=== PATIENT | female | born 1955 | race African-American/Black ===

== ENCOUNTER 2018-03-01 07:37 | Emergency (ER) | payer OTHER ==
[~2018-03-01] VITALS: Ht 175.3 cm; Wt 106.0 kg
[2018-03-01] MEDS ORDERED: KETOROLAC 30MG/ML VIAL IV STA (09:03)
[2018-03-01] MEDS ORDERED: SODIUM CHLORIDE 0.9% 1,000 ML IV ONE (09:03)
[2018-03-01] MEDS ORDERED: FENTANYL CITRATE/PF 50MCG/ML 2ML VIAL IV ONE ×2 (09:15→11:30)
[2018-03-01 09:32] LABS: BASOPHILS % 0.9 % (0.0-2.0); EOSINOPHILS % 1.3 % (0.0-5.0); HEMOGLOBIN. 16.8 g/dL (12.0-16.0); LYMPHOCYTES % 29.1 % (20.0-50.0); MEAN CORPUSCULAR HEMOGLOBIN 33.1 pg (28.0-32.0); MEAN CORPUSCULAR VOLUME 94.5 fL (81.0-99.0); MONOCYTES % 10.2 % (2.0-8.0); NEUTROPHILS % 58.5 % (40.0-76.0); PLATELET 124 x1000/uL (130-400); RED BLOOD CELL COUNT 5.07 mill/uL (4.2-5.4)
[2018-03-01 09:38] LABS: CHLORIDE 109 mEq/L (98-107)
[2018-03-01 09:39] LABS: PROTHROMBIN TIME 10.3 sec (9.4-11.6)
[2018-03-01 09:47] LABS: CLARITY URINE CLOUDY (CLEAR); COLOR URINE YELLOW (YELLOW); KETONES URINE NEGATIVE (NEGATIVE); LEUKOCYTE ESTERASE URINE NEGATIVE (NEGATIVE); NITRITE URINE NEGATIVE (NEGATIVE); OCCULT BLOOD URINE NEGATIVE (NEGATIVE); PROTEIN URINE NEGATIVE (NEGATIVE); SPECIFIC GRAVITY URINE 1.014 (1.005-1.030); UROBILINOGEN URINE 0.2 E.U./dL (0.2-1.0)
[2018-03-01 17:48] VITALS: BP 172/90
== END 2018-03-01 18:02 | disposition home or self-care (01) ==
LOC: ER 07:37 → EDBEDREQ 12:14 → ER 18:02 → CANRESERV 19:43 → ENRESERV 19:43 → CANBEDREQ 03-02 06:13
DX: N20.0 Calculus of kidney (principal); I10 Essential (primary) hypertension; R00.1 Bradycardia, unspecified; M54.42 Lumbago with sciatica, left side; W18.2XXA Fall in (into) shower or empty bathtub, initial encounter; Y93.E1 Activity, personal bathing and showering; Y92.091 Bathroom in other non-institutional residence as the place of occurrence of the external cause; E66.9 Obesity, unspecified; Z68.34 Body mass index [BMI] 34.0-34.9, adult
CPT/HCPCS: 36415; 74176; 80053; 81003; 83690; 85025; 85610; 96374; 96375; 99285; J1885; J3010; J7030

== ENCOUNTER 2018-03-08 13:27 | Emergency (ER) | payer OTHER ==
[~2018-03-08] VITALS: Ht 167.6 cm; Wt 109.0 kg
[2018-03-08] MEDS ORDERED: OXYCODONE HCL/ACETAMINOPHEN 5/325MG TABLET PO ONE (14:30)
[2018-03-08 16:48] VITALS: BP 130/79
== END 2018-03-08 16:50 | disposition home or self-care (01) ==
LOC: ER 13:33
DX: R07.89 Other chest pain (principal); M54.2 Cervicalgia; M54.5 Low back pain; R42 Dizziness and giddiness; R11.0 Nausea; R03.0 Elevated blood-pressure reading, without diagnosis of hypertension; V49.50XA Passenger injured in collision with unspecified motor vehicles in traffic accident, initial encounter; Y93.89 Activity, other specified; Y92.410 Unspecified street and highway as the place of occurrence of the external cause
CPT/HCPCS: 70450; 71045; 72100; 72125; 99284; Z7610

== ENCOUNTER 2019-07-04 10:52 | Emergency (ER) | payer OTHER ==
[~2019-07-04] VITALS: Ht 175.3 cm; Wt 110.0 kg
[2019-07-04] MEDS ORDERED: NITROGLYCERIN OINT 1GM/INCH UDPKT TD ONE (11:30)
[2019-07-04] MEDS ORDERED: ASPIRIN 81MG TABLET PO ONE (11:30)
[2019-07-04 11:43] LABS: BASOPHILS % 0.5 % (0.0-2.0); EOSINOPHILS % 0.9 % (0.0-5.0); HEMATOCRIT. 41.5 % (36.0-48.0); HEMOGLOBIN. 14.4 g/dL (12.0-16.0); LYMPHOCYTES % 20.7 % (20.0-50.0); MEAN CORPUSCULAR HEMOGLOBIN 30.6 pg (28.0-32.0); MEAN CORPUSCULAR VOLUME 87.9 fL (81.0-99.0); MEAN PLATELET VOLUME 10.3 fl (7.4-10.4); MONOCYTES % 6.6 % (2.0-8.0); NEUTROPHILS % 71.3 % (40.0-76.0); PLATELET 152 x1000/uL (130-400); RED BLOOD CELL COUNT 4.72 mill/uL (4.2-5.4); RED CELL DISTRIBUTION WIDTH 14.5 % (11.6-14.6)
[2019-07-04 11:50] LABS: INR 0.9; PROTHROMBIN TIME 9.8 sec (9.6-11.0)
[2019-07-04 11:52] LABS: CHLORIDE 112 mEq/L (98-107)
[2019-07-04 20:00] VITALS: BP 105/65
== END 2019-07-04 20:10 | disposition short-term general hospital (02) ==
LOC: ER 10:52 → CANBEDREQ 14:17 → ER 20:10
DX: R07.89 Other chest pain (principal); E11.9 Type 2 diabetes mellitus without complications; I10 Essential (primary) hypertension; Z88.0 Allergy status to penicillin
CPT/HCPCS: 36415; 71045; 80053; 83880; 84484; 85025; 85610; 93005; 99285; Z7610

== ENCOUNTER 2020-01-23 15:50 | Inpatient (IN) | payer OTHER ==
[~2020-01-23] VITALS: Ht 175.3 cm; Wt 111.1 kg
[2020-01-23 17:21] LABS: BASOPHILS % 0.5 % (0.0-2.0); EOSINOPHILS % 1.7 % (0.0-5.0); HEMOGLOBIN. 12.6 g/dL (12.0-16.0); LYMPHOCYTES % 25.6 % (20.0-50.0); MEAN CORPUSCULAR HEMOGLOBIN 29.7 pg (28.0-32.0); MEAN CORPUSCULAR VOLUME 87.2 fL (81.0-99.0); MEAN PLATELET VOLUME 10.2 fl (7.4-10.4); MONOCYTES % 6.1 % (2.0-8.0); NEUTROPHILS % 66.1 % (40.0-76.0); PLATELET 157 x1000/uL (130-400); RED BLOOD CELL COUNT 4.24 mill/uL (4.2-5.4); RED CELL DISTRIBUTION WIDTH 15.8 % (11.6-14.6)
[2020-01-23 17:37] LABS: CHLORIDE 112 mEq/L (98-107)
[2020-01-23] MEDS ORDERED: ASPIRIN 81MG TABLET PO ONE (17:45)
[2020-01-23] MEDS ORDERED: FUROSEMIDE 20MG/2ML VIAL IVP ONE (17:45)
[2020-01-24] VITALS (12 sets, daily range): BP systolic 115–140; BP diastolic 56–81
[2020-01-24] MEDS ORDERED: CLONIDINE 0.1MG TABLET PO PRN (01:15)
[2020-01-24] MEDS ORDERED: DEXTROSE 50% WATER 50ML SYRINGE IV PRN (01:15)
[2020-01-24] MEDS ORDERED: TEMAZEPAM 15MG CAPSULE PO PRN (01:15)
[2020-01-24 02:30] LABS: LDL CHOLESTEROL 50 mg/dL (5-100)
[2020-01-24 02:31] LABS: HDL CHOLESTEROL 33 mg/dL (40-59)
[2020-01-24 02:32] LABS: CREATINE KINASE 99 IU/L (26-192)
[2020-01-24 02:33] LABS: CREATINE KINASE MB FRACTION < 1.0 ng/mL (0.5-3.6)
[2020-01-24] MEDS ORDERED: IBUP-2030 PO (02:57)
[2020-01-24] MEDS ORDERED: ASPI-1158 PO (02:57)
[2020-01-24] MEDS ORDERED: GLIP5TAB12 PO (02:57)
[2020-01-24] MEDS ORDERED: GABA300C PO (02:57)
[2020-01-24] MEDS ORDERED: ISOS60TA4 PO (02:57)
[2020-01-24] MEDS ORDERED: LISI-186 PO (02:57)
[2020-01-24] MEDS ORDERED: BUPR150T3 PO (02:57)
[2020-01-24] MEDS ORDERED: CLOP75TA4 PO (02:57)
[2020-01-24] MEDS ORDERED: ERGO500013 (02:57)
[2020-01-24] MEDS ORDERED: AMLO10TA80 PO (02:57)
[2020-01-24] MEDS ORDERED: ATOR80TA PO (02:57)
[2020-01-24] MEDS ORDERED: METF-416 PO (02:57)
[2020-01-24] MEDS: HYDROCODONE/ACETAMINOPHEN 5/325MG TABLET PO PRN ×2 (04:36→09:11)
[2020-01-24] MEDS: PANTOPRAZOLE 40MG DR TABLET PO SCH (06:28)
[2020-01-24] MEDS: BLOOD SUGAR DIAGNOSTIC STRIP TEST SCH ×4 (06:53→21:13)
[2020-01-24] MEDS: INSULIN LISPRO 100 UNITS/ML SUBCUT SCH ×4 (07:20→21:00)
[2020-01-24] MEDS: ASPIRIN 81MG EC TABLET PO SCH (08:38)
[2020-01-24] MEDS: ENOXAPARIN 30MG/0.3ML SYR SUBCUT SCH ×2 (09:10→21:13)
[2020-01-24 09:16] LABS: CHLORIDE 112 mEq/L (98-107)
[2020-01-24 09:25] LABS: CREATINE KINASE 104 IU/L (26-192)
[2020-01-24 09:27] LABS: CREATINE KINASE MB FRACTION < 1.0 ng/mL (0.5-3.6)
[2020-01-24] MEDS ORDERED: REGADENOSON 0.4 MG/5 ML IV SCH (13:30)
[2020-01-24] MEDS ORDERED: MORPHINE SULFATE 2 MG/ML CPJ (NOT FOR IM USE) IV PRN (15:30)
[2020-01-24] MEDS ORDERED: DIPHENHYDRAMINE 50MG/ML VIAL IV PRN (15:30)
[2020-01-24] MEDS ORDERED: ONDANSETRON HCL 4MG/2ML INJ IV PRN (15:30)
[2020-01-24] MEDS ORDERED: ACETAMINOPHEN 325MG TABLET PO PRN (15:30)
[2020-01-24] MEDS ORDERED: HYDRALAZINE 20MG/ML VIAL IV PRN (15:30)
[2020-01-24] MEDS ORDERED: LORAZEPAM 2MG/ML CPJ IV PRN (15:30)
[2020-01-24] MEDS ORDERED: ACETAMINOPHEN 650MG SUPP PR PRN (15:30)
[2020-01-24 15:45] LABS: BG BASE EXCESS -1.3 mmol/L (-2.0-2.0); BG CARBOXYHEMOGLOBIN 0.7 % (0.5-1.5); BG DEOXYHEMOGLOBIN 5.8 % (0.0-5.0); BG HCO3 ACT 22.6 mmol/L (22.0-26.0); BG METHEMOGLOBIN 0.3 % (0.0-1.5); BG OXYGEN SATURATION 94.1 % (92.0-98.5); BG OXYHEMOGLOBIN 93.2 % (94.0-97.0); BG PCO2 35.3 mmHg (35.0-45.0); BG PH 7.425 (7.350-7.450); BG PO2 73.6 mmHg (75.0-100.0); BG SAMPLE SITE RIGHT RADIAL; BG TOTAL HEMOGLOBIN 12.2 g/dL (12.0-18.0); BG VENT MODE ROOM AIR
[2020-01-24] MEDS: GABAPENTIN 300MG CAPSULE PO SCH (16:26)
[2020-01-24] MEDS: CLOPIDOGREL 75MG TABLET PO SCH (16:26)
[2020-01-24] MEDS: AMLODIPINE 10MG TABLET PO SCH (16:26)
[2020-01-24 17:10] LABS: D-DIMER 0.86 mg/L FEU (<0.50); INR 0.9
[2020-01-24 17:48] LABS: *AMPHETAMINES SCREEN URINE NEGATIVE (NEGATIVE); *BARBITURATES SCREEN URINE NEGATIVE (NEGATIVE); *BENZODIAZEPINES SCREEN URINE NEGATIVE (NEGATIVE); *COCAINE SCREEN URINE NEGATIVE (NEGATIVE)
[2020-01-24 17:49] LABS: CANNABINOID URINE SCREEN NEGATIVE (NEGATIVE); METHADONE URINE SCREEN NEGATIVE (NEGATIVE); OPIATES URINE SCREEN PRESUMTIVE POSITIVE (NEGATIVE); PHENCYCLIDINE URINE SCREEN NEGATIVE (NEGATIVE)
[2020-01-24] MEDS: BUPROPION HCL 150MG SR TABLET PO SCH (17:53)
[2020-01-24] MEDS ORDERED: IOHEXOL-350 100 ML BOTTLE ONE (23:09)
[2020-01-25] VITALS (9 sets, daily range): BP systolic 103–133; BP diastolic 40–89
[2020-01-25] MEDS ORDERED: DEXT 5%/0.45% NACL 1000ML 1,000 ML IV SCH
[2020-01-25] MEDS: PANTOPRAZOLE 40MG DR TABLET PO SCH (06:50)
[2020-01-25 07:07] LABS: CHLORIDE 110 mEq/L (98-107)
[2020-01-25 07:11] LABS: HEMATOCRIT 34.8 % (36.0-48.0); HEMOGLOBIN 12.2 g/dL (12.0-16.0); MEAN CORPUSCULAR HEMOGLOBIN 30.3 pg (28.0-32.0); MEAN CORPUSCULAR VOLUME 86.5 fL (81.0-99.0); PLATELET 135 x1000/uL (130-400); RED BLOOD CELL COUNT 4.02 mill/uL (4.2-5.4); RED CELL DISTRIBUTION WIDTH 15.8 % (11.6-14.6)
[2020-01-25] MEDS: BLOOD SUGAR DIAGNOSTIC STRIP TEST SCH ×2 (07:39→12:31)
[2020-01-25] MEDS: NITROGLYCERIN 0.4MG TABLET SL SL PRN ×2 (08:52→09:05)
[2020-01-25] MEDS: INSULIN LISPRO 100 UNITS/ML SUBCUT SCH ×2 (08:54→12:20)
[2020-01-25] MEDS: ENOXAPARIN 30MG/0.3ML SYR SUBCUT SCH (08:55)
[2020-01-25] MEDS ORDERED: ATORVASTATIN CALCIUM 40MG TABLET PO SCH (09:00)
[2020-01-25] MEDS ORDERED: ISOSORBIDE MONONITRATE 60MG TABLET SR 24HR PO SCH (09:00)
[2020-01-25] MEDS: CLOPIDOGREL 75MG TABLET PO SCH (09:15)
[2020-01-25] MEDS: ASPIRIN 81MG EC TABLET PO SCH (09:15)
[2020-01-25] MEDS: BUPROPION HCL 150MG SR TABLET PO SCH (09:16)
[2020-01-25] MEDS: GABAPENTIN 300MG CAPSULE PO SCH ×2 (09:16→12:39)
[2020-01-25] MEDS: AMLODIPINE 10MG TABLET PO SCH (09:16)
[2020-01-25] MEDS ORDERED: REGADENOSON 0.4 MG/5 ML IV ONE (11:24)
[2020-01-25] MEDS: HYDROCODONE/ACETAMINOPHEN 5/325MG TABLET PO PRN (12:40)
[2020-01-25] MEDS ORDERED: AMLO10TA4 MT (12:55)
[2020-01-25] MEDS ORDERED: CLOP75TA4 MT (12:55)
[2020-01-25] MEDS ORDERED: ATOR80TA MT (12:55)
[2020-01-25] MEDS ORDERED: ASPI-1497 MT (12:55)
[2020-01-25] MEDS ORDERED: ISOS60TA4 MT (12:55)
[2020-01-26] MEDS ORDERED: FAMOTIDINE 20MG TABLET PO SCH (09:00)
== END 2020-01-25 15:45 | disposition home or self-care (01) | DRG 194 ==
LOC: ER 15:50 → 3WST 18:42 → EDBEDREQTM 19:13 → EDBEDREQ 19:13 → ENRESERV 22:56
PROVIDERS: ADMIT Internal Medicine; ATTEND Internal Medicine
DX: I11.0 Hypertensive heart disease with heart failure (principal); E87.8 Other disorders of electrolyte and fluid balance, not elsewhere classified; I50.33 Acute on chronic diastolic (congestive) heart failure; I25.110 Atherosclerotic heart disease of native coronary artery with unstable angina pectoris; E11.9 Type 2 diabetes mellitus without complications; E78.5 Hyperlipidemia, unspecified; E66.9 Obesity, unspecified; F17.200 Nicotine dependence, unspecified, uncomplicated; R00.1 Bradycardia, unspecified; Z95.5 Presence of coronary angioplasty implant and graft; Z79.02 Long term (current) use of antithrombotics/antiplatelets; Z68.36 Body mass index [BMI] 36.0-36.9, adult; Z71.6 Tobacco abuse counseling; Z79.1 Long term (current) use of non-steroidal anti-inflammatories (NSAID); Z79.82 Long term (current) use of aspirin; Z79.84 Long term (current) use of oral hypoglycemic drugs; Z79.899 Other long term (current) drug therapy; I08.2 Rheumatic disorders of both aortic and tricuspid valves
CPT/HCPCS: 36415; 36600; 71045; 71275; 78452; 80048; 80053; 80061; 80305; 82375; 82550; 82553; 82805; 82962; 83880; 84443; 84484; 85025; 85027; 85379; 93005; 93017; 93306; 97162; 99285; A9500; J1650; J1815; J1940; J2270; J2785; Q9967